=== PATIENT | female | born 2000 | race Hispanic/Latino ===

== ENCOUNTER 2018-10-31 23:26 | Emergency (ER) | payer MEDICAID, OTHER ==
[2018-10-31 23:48] LABS: APPEARANCE,URINE CLOUDY (CLEAR); BILIRUBIN,URINE NEGATIVE (NEGATIVE); COLOR,URINE ORANGE (YELLOW); GLUCOSE, URINE (UA) NEGATIVE (NEGATIVE); KETONES,URINE NEGATIVE (NEGATIVE); LEUKOCYTE ESTERASE ,URINE MODERATE (NEGATIVE); NITRATE,URINE NEGATIVE (NEGATIVE); OCCULT BLOOD,URINE LARGE (NEGATIVE); PROTEIN,URINE 100 mg/dL (NEGATIVE); UROBILINOGEN,URINE 0.2 mg/dL (0.2-1.0)
[2018-10-31 23:57] LABS: HCG,QUAL RESULT NEGATIVE (NEGATIVE)
[2018-11-01 00:12] LABS: BACTERIA,URINE Moderate /HPF (None Seen); RBC,URINE 26-50 /HPF (0-1)
[2018-11-01] MEDS ORDERED: CEFTRIAXONE SODIUM 1 GM ONE (00:21)
[2018-11-01] MEDS ORDERED: LIDOCAINE HCL-MPF 1% 2ML VIAL ONE (00:21)
[2018-11-01] MEDS ORDERED: PHENAZOPYRIDINE HCL 200 MG TABLET ONE (00:21)
== END 2018-11-01 00:39 | disposition home or self-care (01) ==
LOC: EDH 23:26
DX: T19.2XXA Foreign body in vulva and vagina, initial encounter (principal); X58.XXXA Exposure to other specified factors, initial encounter; Y93.89 Activity, other specified; Y92.89 Other specified places as the place of occurrence of the external cause; Y99.8 Other external cause status
CPT/HCPCS: 81001; 81025; 96372; 99284; J0696; J3490